=== PATIENT | female | born 1950 | race African-American/Black ===

== ENCOUNTER 2017-11-24 11:46 | Emergency (ER) | payer SELFPAY ==
[~2017-11-24] VITALS: Ht 162.6 cm; Wt 156.0 kg
[2017-11-24 12:54] VITALS: BP 195/84
[2017-11-24] MEDS ORDERED: HYDROCHLOROTHIAZIDE 25MG TABLET PO ONE (14:30)
== END 2017-11-24 16:34 | disposition home or self-care (01) ==
LOC: ER 11:46
DX: Z76.0 Encounter for issue of repeat prescription (principal); E11.9 Type 2 diabetes mellitus without complications; I10 Essential (primary) hypertension; Z79.4 Long term (current) use of insulin; Z90.710 Acquired absence of both cervix and uterus
CPT/HCPCS: 99283